=== PATIENT | female | born 1995 | race Caucasian/White ===

== ENCOUNTER 2022-08-22 10:22 | Emergency (ER) | payer SELFPAY ==
[2022-08-22 10:29] VITALS: BP 113/69; PULSE 83; RESP 16; TEMP 36.8; O2SAT 97
--- NOTE | 2022-08-22 11:00 | ED.NURSE ---
Pt provided with meal tray.
--- NOTE | 2022-08-22 11:03 | ED.GENADULT ---
HPI - General Adult General Time Seen by Provider: 11:03 Date Seen: 08/22/22 Chief complaint: Psychiatric Problem/Disorder Stated complaint: Mental health Time Seen by Provider: 08/22/22 10:40 Source: patient Limitations: no limitations History of Present Illness HPI narrative: Patient is a 26 year white female from [place], who is here with her boyfriend and she is a certified welder. She was found trying to drown herself in her own bathtub today by her boyfriend. She did not sustain any injury, no breathing difficulty. Her vital signs are here and normal. She reports that she has had longstanding depression anxiety, depressions been worse recently, she does report depression that has been present ?forever?. PD was here as well with the patient. She is against going into an inpatient Health Center but she did make a suicide attempt today. She has felt very sad, very tearful, very depressed. Denies other drugs or alcohol use. Reports her period is currently occurring. Has never had thyroid disease or other metabolic abnormalities. Related Data Home Medications Medication Instructions Recorded Confirmed No Known Home Medications 08/22/22 08/22/22 Allergies Allergy/AdvReac Type Severity Reaction Status Date / Time iodine Allergy Unknown Verified 08/22/22 10:37 Review of Systems Status of ROS: Reports: 6 or more systems reviewed and unremarkable except as noted in History and below [facility] Social History Smoking Status: Current every day smoker What tobacco products do you use: cigarettes Do you use any of these nicotine containing products: Vaping Products How often do you have a drink containing alcohol: monthly or less How often do you have six or more drinks on one occasion: Never AUDIT-C Alcohol total score: 1 Non-prescribed substance use: marijuana (any form) Exam Narrative: Exam Narrative: Objective: Patient's vital signs unremarkable She is alert or x3 breathing easily no cyanosis Tearful, affect flat HEENT unremarkable pupils react to light no facial asymmetry Pulses regular Heart rhythm regular heart murmur Lungs anteriorly are clear Abdomen is benign Extremities are no edema Neurologic nonfocal Skin periphery is warm and dry Const: Vital Signs, click to edit/add: Vital Signs - 24 hr 08/22/22 10:29 08/22/22 15:40 Temperature 98.3 F Pulse Rate [Pulse Oximeter] 83 70 Respiratory Rate 16 Blood Pressure [Ri ght Upper Arm] 113/69 111/57 L Pulse Oximetry 97 99 Oxygen Delivery Me thod Room Air Room Air Course Vital Signs Vital signs: Initial Vital Signs Temperature 98.3 F 08/22/22 10:29 Temperature Source Temporal Artery Scan 08/22/22 10:29 Pulse Rate 83 08/22/22 10:29 Respiratory Rate 16 08/22/22 10:29 Blood Pressure 113/69 08/22/22 10:29 Blood Pressure Mean 83 08/22/22 10:29 Blood Pressure Position Sitting 08/22/22 10:29 Pulse Oximetry 97 08/22/22 10:29 Oxygen Delivery Method Room Air 08/22/22 10:29 Vital Signs Temperature 98.3 F 08/22/22 10:29 Pulse Rate 83 08/22/22 10:29 Respiratory Rate 16 08/22/22 10:29 Blood Pressure 113/69 08/22/22 10:29 Pulse Oximetry 97 08/22/22 10:29 Oxygen Delivery Method Room Air 08/22/22 10:29 Temperature 98.3 F 08/22/22 10:29 Pulse Rate 70 08/22/22 15:40 Respiratory Rate 16 08/22/22 10:29 Blood Pressure 111/57 L 08/22/22 15:40 Pulse Oximetry 99 08/22/22 15:40 Oxygen Delivery Method Room Air 08/22/22 15:40 Medical Decision Making MDM Narrative Medical decision making narrative: [age] year white female with suicide attempt, severe depression/anxiety. Patient needs inpatient care, will have a mental health assessment, will fill out 7 tower hold paperwork. Will do lab screening and studies, tox screen. Tylenol, aspirin, alcohol., test. Disposition pending deck assessment and further workup. At this point the patient and have any clinical injury. Addendum: The patient's lab studies look reassuring, patient's drug screen is positive for marijuana, alcohol and Tylenol aspirin negative, [facility] mental assessment felt that she needs inpatient placement as well, the patient has been placed on 72 hour hold. Attempts will be made at the inpatient placement. Transfer sheet signed as well as hold completed, patient is in stable condition and medically clear. She has had no respiratory issues. Lab Data Labs: Lab Results 08/22/22 08/22/22 08/22/22 Range/Units 10:47 11:01 11:18 WBC 4.92 (4.50-11.00) K/uL RBC 4.79 (4.00-5.20) m/uL Hgb 14.6 (12.0-16.0) gm/dL Hct 42.5 (33.0-51.0) % MCV 89 (80-100) fL MCH 31 (26-34) pg MCHC 34 (32-36) gm/dL RDW Coeff of Darron 12.2 (11.5-15.5) % Plt Count 258 (140-440) K/uL Neut % (Auto) 46.9 (42.0-72.0) % Lymph % (Auto) 47.8 H (20-44) % [place] % (Auto) 3.7 (0.0-11.0) % Eos % (Auto) 0.8 (0.0-7.0) % Baso % (Auto) 0.8 (0.0-3.0) % Neut # (Auto) 2.31 (1.7-7.0) K/uL Lymph # (Auto) 2.40 (0.90-2.90) K/uL [place] # (Auto) 0.20 (0.00-0.90) K/UL Eos # (Auto) 0.04 (0.00-0.50) K/uL Baso # (Auto) 0.04 (0.00-0.30) K/uL Sodium 139 (135-149) mmol/L Potassium 3.9 (3.6-5.1) mmol/L Chloride 106 (96-114) mmol/L Carbon Dioxide 25 (20-32) mmol/L BUN 13 (5-24) mg/dL Creatinine 0.7 (0.5-1.5) mg/dL Estimated GFR 121 ml/min Glucose 104 (60-115) mg/dL Calcium 9.3 (8.4-10.6) mg/dL Total Bilirubin 1.2 (0.1-1.5) mg/dL Direct Bilirubin 0.1 (0.0-0.5) mg/dL AST 24 (12-35) U/L ALT 17 (4-35) U/L Alkaline Phosphatase 41 (40-150) U/L Total Protein 7.3 (6.0-8.3) g/dL Albumin 4.6 (3.3-5.0) g/dL TSH Cancelled HCG, Qual (Negative) Urine Color Yellow (Yellow) Urine Appearance Cloudy A (Clear) Urine pH 6.0 (5.0-8.5) Ur Specific [place] >= 1.030 (1.000-1.030) Urine Protein 1+ A (Negative) Urine Glucose (UA) Negative (Negative) Urine Ketones Trace A (Negative) Urine Blood 2+ A (Negative) Urine Nitrite Negative (Negative) Urine Bilirubin 1+ A (Negative) Urine Urobilinogen 0.2 (0.2-1.0) Ur Leukocyte Esterase Negative (Negative) Urine RBC 0-2 (0-2) Urine WBC 0-2 (0-5) Ur Squamous Epith Cells None (None-Few) Urine Bacteria Few A (None) Salicylates (1.0-10) mg/dL Urine Opiates Screen Negative (Negative) Ur Oxycodone Screen Negative (Negative) Urine Methadone Screen Negative (Negative) Ur Propoxyphene Screen Negative (Negative) Acetaminophen (10.0-30.0) ug/mL Ur Barbiturates Screen Negative (Negative) U Tricyclic Antidepress Negative (Negative) Ur Phencyclidine Scrn Negative (Negative) Ur Amphetamines Screen Negative (Negative) U Methamphetamines Scrn Negative (Negative) U Benzodiazepines Scrn Negative (Negative) Urine Cocaine Screen Negative (Negative) U Marijuana (THC) Screen POSITIVE A* (Negative) Ur Drug Screen Comment See Note Ethyl Alcohol (0.01-0.03) % SARS-CoV-2 (PCR) (Negative) Lab Acknowledgement 08/22/22 08/22/22 08/22/22 Range/Units 11:18 13:12 13:45 WBC (4.50-11.00) K/uL RBC (4.00-5.20) m/uL Hgb (12.0-16.0) gm/dL Hct (33.0-51.0) % MCV (80-100) fL MCH (26-34) pg MCHC (32-36) gm/dL RDW Coeff of Darron (11.5-15.5) % Plt Count (140-440) K/uL Neut % (Auto) (42.0-72.0) % Lymph % (Auto) (20-44) % [place] % (Auto) (0.0-11.0) % Eos % (Auto) (0.0-7.0) % Baso % (Auto) (0.0-3.0) % Neut # (Auto) (1.7-7.0) K/uL Lymph # (Auto) (0.90-2.90) K/uL [place] # (Auto) (0.00-0.90) K/UL Eos # (Auto) (0.00-0.50) K/uL Baso # (Auto) (0.00-0.30) K/uL Sodium (135-149) mmol/L Potassium (3.6-5.1) mmol/L Chloride (96-114) mmol/L Carbon Dioxide (20-32) mmol/L BUN (5-24) mg/dL Creatinine (0.5-1.5) mg/dL Estimated GFR ml/min Glucose (60-115) mg/dL Calcium (8.4-10.6) mg/dL Total Bilirubin (0.1-1.5) mg/dL Direct Bilirubin (0.0-0.5) mg/dL AST (12-35) U/L ALT (4-35) U/L Alkaline Phosphatase (40-150) U/L Total Protein (6.0-8.3) g/dL Albumin (3.3-5.0) g/dL TSH 0.613 HCG, Qual Negative (Negative) Urine Color (Yellow) Urine Appearance (Clear) Urine pH (5.0-8.5) Ur Specific [place] (1.000-1.030) Urine Protein (Negative) Urine Glucose (UA) (Negative) Urine Ketones (Negative) Urine Blood (Negative) Urine Nitrite (Negative) Urine Bilirubin (Negative) Urine Urobilinogen (0.2-1.0) Ur Leukocyte Esterase (Negative) Urine RBC (0-2) Urine WBC (0-5) Ur Squamous Epith Cells (None-Few) Urine Bacteria (None) Salicylates < 1.0 L (1.0-10) mg/dL Urine Opiates Screen (Negative) Ur Oxycodone Screen (Negative) Urine Methadone Screen (Negative) Ur Propoxyphene Screen (Negative) Acetaminophen < 10.0 L (10.0-30.0) ug/mL Ur Barbiturates Screen (Negative) U Tricyclic Antidepress (Negative) Ur Phencyclidine Scrn (Negative) Ur Amphetamines Screen (Negative) U Methamphetamines Scrn (Negative) U Benzodiazepines Scrn (Negative) Urine Cocaine Screen (Negative) U Marijuana (THC) Screen (Negative) Ur Drug Screen Comment Ethyl Alcohol < 0.01 L (0.01-0.03) % SARS-CoV-2 (PCR) Negative SARS-CoV-2 (Negative) Lab Acknowledgement Test Added Discharge Plan Discharge Clinical Impression: Depression, Suicide attempt Patient Disposition: Xfer Other Condition: Stable Prescriptions: No Action No Known Home Medications Stand Alone Forms: MyHealth Info Instructions
[2022-08-22 11:04] LABS: Amphetamine Screen Urine Negative (Negative); Barbiturate Screen Urine Negative (Negative); Benzodiazepines Screen Urine Negative (Negative); Cocaine Screen Urine Negative (Negative); Methadone Screen Urine Negative (Negative); Methamphetamines Screen Urine Negative (Negative); Opiate Screen Urine Negative (Negative); Oxycodone Screen Urine Negative (Negative); Phencyclidine Screen Urine Negative (Negative); Tricyclic Antidepressant Urine Negative (Negative)
[2022-08-22 11:06] LABS: Cannabinoid Screen Urine POSITIVE (Negative)
--- NOTE | 2022-08-22 11:34 | ED.NURSE ---
DEC assessment started.
[2022-08-22 11:35] LABS: Appearance Urine Cloudy (Clear); Bilirubin Urine 1+ (Negative); Blood Urine 2+ (Negative); Color Urine Yellow (Yellow); Glucose Urine Negative (Negative); Ketones Urine Trace (Negative); Leukocyte Esterase Urine Negative (Negative); Nitrite Urine Negative (Negative); Protein Urine 1+ (Negative); Specific Gravity Urine >= 1.030 (1.000-1.030); Urobilinogen Urine 0.2 (0.2-1.0)
[2022-08-22 11:37] LABS: Basophils Absolute Auto 0.04 K/uL (0.00-0.30); Basophils Percent Auto 0.8 % (0.0-3.0); Eosinophils Absolute Auto 0.04 K/uL (0.00-0.50); Eosinophils Percent Auto 0.8 % (0.0-7.0); Hematocrit 42.5 % (33.0-51.0); Hemoglobin* 14.6 gm/dL (12.0-16.0); Lymphocytes Percent Auto 47.8 % (20-44); Mean Corpuscular HGB Conc 34 gm/dL (32-36); Mean Corpuscular Hemoglobin 31 pg (26-34); Mean Corpuscular Volume 89 fL (80-100); Monocytes Percent Auto 3.7 % (0.0-11.0); Neutrophils Absolute Auto 2.31 K/uL (1.7-7.0); Neutrophils Percent Auto 46.9 % (42.0-72.0); Platelet Count* 258 K/uL (140-440); RDW Coefficient of Variation % 12.2 % (11.5-15.5); Red Blood Count 4.79 m/uL (4.00-5.20); White Blood Count* 4.92 K/uL (4.50-11.00)
[2022-08-22 11:38] LABS: Slide Review Reflex No
[2022-08-22 11:50] LABS: Bacteria Urine Few; RBC Urine 0-2 (0-2); WBC Urine 0-2 (0-5)
[2022-08-22 11:52] LABS: Albumin* 4.6 g/dL (3.3-5.0); Chloride* 106 mmol/L (96-114); Potassium* 3.9 mmol/L (3.6-5.1); Sodium* 139 mmol/L (135-149)
[2022-08-22 11:54] LABS: Carbon Dioxide* 25 mmol/L (20-32); Creatinine* 0.7 mg/dL (0.5-1.5); Estimated Glomerular Filt Rate 121 ml/min
[2022-08-22 11:55] LABS: Alanine Aminotransferase* 17 U/L (4-35); Alkaline Phosphatase* 41 U/L (40-150); Aspartate Amino Transferase* 24 U/L (12-35); Bilirubin Direct* 0.1 mg/dL (0.0-0.5); Bilirubin Total* 1.2 mg/dL (0.1-1.5); Blood Urea Nitrogen* 13 mg/dL (5-24); Calcium* 9.3 mg/dL (8.4-10.6); Glucose* 104 mg/dL (60-115); Total Protein* 7.3 g/dL (6.0-8.3)
[2022-08-22 11:59] LABS: HCG Qualitative Serum* Negative (Negative)
[2022-08-22 12:02] LABS: Acetaminophen* < 10.0 ug/mL (10.0-30.0); Ethanol* < 0.01 % (0.01-0.03); Salicylate* < 1.0 mg/dL (1.0-10)
--- NOTE | 2022-08-22 12:30 | ED.NURSE ---
DEC assessment completed.
--- NOTE | 2022-08-22 13:00 | ED.NURSE ---
72-hour hold rights read to pt, pt given a copy of hold rights.
[2022-08-22] MEDS: NICOTINE 14 mg PATCH 1 PATCH TRANSDERMA (13:50)
[2022-08-22 14:10] LABS: SARS PCR* Negative SARS-CoV-2 (Negative)
[2022-08-22 15:04] LABS: Thyroid Stimulating Hormone* 0.613 uIU/mL (0.270-4.20)
[2022-08-22 15:40] VITALS: BP 111/57; PULSE 70; O2SAT 99
--- NOTE | 2022-08-22 16:47 | ED.NURSE ---
boyfriend brought in [employer]. calm and cooperative
--- NOTE | 2022-08-22 19:47 | ED.NURSE ---
Report called to [facility].
--- NOTE | 2022-08-22 20:15 | ED.NURSE ---
Pt requesting nicotine patch be removed. Patch taken off by publications writer.
[2022-08-22 20:22] VITALS: BP 100/58; PULSE 70; RESP 16; TEMP 36.9; O2SAT 98
--- NOTE | 2022-08-22 21:34 | ED.NURSE ---
EMS arrived, pt care transferred to EMS. pt taken to [facility] for [facility] health care. [facility] informed of pt ETA from [facility].
== END 2022-08-22 21:50 | disposition other institution (70) ==
PROVIDERS: Emergency Provider Family Medicine
DX: T14.91XA Suicide attempt, initial encounter (principal); X71.0XXA Intentional self-harm by drowning and submersion while in bathtub, initial encounter; F32.A Depression, unspecified
CPT/HCPCS: 36415; 80048; 80076; 80143; 80179; 80306; 81001; 82077; 84443; 84703; 85025; 87086; 87635; 99284; 99285; S4990